=== PATIENT | female | born 1970 | race Two or more races ===

== ENCOUNTER 2016-04-12 08:31 | Day surgery (SDC) | payer MEDICAID ==
[2016-04-12] VITALS (20 sets, daily range): BP systolic 122–159; BP diastolic 43–70; PULSE 65–110; RESP 10–20; Ht 154.9 cm; Wt 58.0 kg
[~2016-04-12] VITALS: Ht 154.9 cm; Wt 58.0 kg
[~2016-04-12 08:31] MED LIST: CEFAZOLIN 2 GM/50 ML (PMX) 50 ML IVPB ONE; SOD CHLORIDE 0.9% 1,000 ML IV SCH
[2016-04-12 09:36] LABS: ADD SCAN DIFF NO
[2016-04-12 09:38] LABS: EOSINOPHILS % 0.6 % (0.0-7.0); HEMATOCRIT 35.3 % (37.0-47.0); LYMPHOCYTES # 1.2 10^3/ul (0.8-2.9); LYMPHOCYTES % 35.9 % (15.0-51.0); MEAN CORPUSCULAR HEMOGLOBIN 33.9 pg (29.0-33.0); MEAN CORPUSCULAR VOLUME 99.7 fl (82.0-101.0); MEAN PLATELET VOLUME 9.1 fl (7.4-10.4); MONOCYTE # 0.2 10^3/ul (0.3-0.9); MONOCYTES % 5.6 % (0.0-11.0); NEUTROPHILS % 57.9 % (39.0-77.0); PLATELET COUNT 187 10^3/UL (140-415); RED BLOOD COUNT 3.54 10^6/ul (4.20-5.40); RED CELL DISTRIBUTION WIDTH 12.9 % (11.5-14.5); WHITE BLOOD COUNT 3.4 10^3/ul (4.8-10.8)
[2016-04-12 09:51] LABS: POTASSIUM 3.8 mmol/L (3.5-5.1)
[2016-04-12 09:54] LABS: INR 1.05; PROTIME 13.7 Sec (12.2-14.2); PT RATIO 1.1
[2016-04-12 09:59] LABS: CALCIUM 9.5 mg/dl (8.4-10.2); CREATININE 0.57 mg/dl (0.44-1.00)
[2016-04-12] MEDS ORDERED: CEFAZOLIN 1 GM INJ ONE (10:15)
[2016-04-12] MEDS ORDERED: ONDANSETRON 4 MG INJ ONE (10:15)
[2016-04-12] MEDS ORDERED: MIDAZOLAM 1 MG/ML 2 ML INJ ONE (10:15)
[2016-04-12] MEDS ORDERED: PROPOFOL 20 ML ONE (10:15)
[2016-04-12] MEDS ORDERED: FENTAnyl 50 MCG/ML VIAL ONE (10:40)
[2016-04-12] MEDS ORDERED: METOCLOPRAMIDE 10 MG INJ ONE (10:55)
[2016-04-12] MEDS ORDERED: HYDROmorphONE (0.2 MG/ML) 10ML SYG IV PRN ×2 (11:00)
[2016-04-12] MEDS ORDERED: DIPHENHYDRAMINE 50 MG INJ IV PRN (11:00)
[2016-04-12] MEDS ORDERED: ONDANSETRON 4 MG INJ IV PRN ×3 (11:00→19:22)
[2016-04-12] MEDS ORDERED: OXYCODONE/ACETAMINOPHEN (5/325) TAB PO PRN ×2 (11:00)
[2016-04-12] MEDS ORDERED: MEPERIDINE 25 MG INJ IV PRN (11:00)
[2016-04-12] MEDS ORDERED: METOCLOPRAMIDE 10 MG INJ IV PRN (11:00)
[2016-04-12] MEDS ORDERED: EPHEDrine SULFATE 50 MG/5 ML SYG ONE (11:10)
--- NOTE | 2016-04-12 12:17 | OPR ---
DATE OF OPERATION: 04/12/2016 PREOPERATIVE DIAGNOSIS: Locally advanced right breast cancer. POSTOPERATIVE DIAGNOSIS: Locally advanced right breast cancer. OPERATION PERFORMED: Needle-directed right partial mastectomy and axillary dissection. ANESTHESIA: General. ANESTHESIOLOGIST: Dr. Joesph SURGEON: Desmond Cadena MD ASSISTANTS: Dr. Encarnacion and Dr. Peñaloza INDICATIONS FOR PROCEDURE: The patient is an unfortunate 45-year-old female who presented with a la rge, approximately 4 to 5 cm, invasive cancer of her right breast. She underwent neoadjuvant chemot herapy, with very good response. She thus was deemed a candidate for breast conservation. She cons ented for a needle-directed right partial mastectomy and axillary dissection. DESCRIPTION OF PROCEDURE: On the morning of surgery the patient presented to [facility], where she underwent localization of the previous clip performed by the attending radiologist, Dr. Jaimes . Subsequently, she was brought to the operating theater and placed u nder general anesthesia. The right breast and axillary region was prepped and draped in the usual s terile fashion. The localization wire was in the upper outer quadrant of the right breast. A curvi linear incision was made in this region. The subcutaneous tissue was dissected with cautery. The s kin edges were then elevated with skin hooks and wide circumferential dissection of the tissue assoc iated with the wire then took place. The specimen was elevated, transected, oriented, and sent for radiographic confirmation of capture. Capture was confirmed. The specimen was then [facility]. The wound was irrigated. Minimal bleeding was controlled with cautery and the skin was then reapproximated with a deep dermal layer of 4-0 Vicryl sutures in interrupted fash ion, followed by final skin approximation with 5-0 PDS sutures in subcuticular fashion. Attention was then directed to performing the axillary dissection. A 4-cm incision was made in the right axillary hairline. The subcutaneous tissue was dissected with cautery down through the clavip ectoral fascia. With blunt dissection along the chest wall the long thoracic nerve was identified a nd kept out of harm's way. More superiorly the axillary vein was identified and dissected from medi al to lateral. The thoracodorsal neurovascular bundle was identified, dissected throughout its cour se, and kept out of harm's way. Node bearing tissue between the long thoracic nerve and the thoraco dorsal nerve was meticulously harvested using the LigaSure device. The specimen was then sent for p ermanent pathologic analysis. The wound was irrigated. Minimal bleeding was controlled with cauter y. A #10 flat Samuel-Rodriguez drain was then brought through the right mid axillary line, cut to size , and laid within the axilla. It was secured in place with a 2-0 nylon suture in a standard fashion . The skin was then reapproximated with a 4-0 Vicryl suture in subcuticular fashion. Benzoin and S seth-Strips were applied to both incisions. The patient tolerated the procedure well. Estimated bl ood loss was 75 mL. There were no complications and the patient was transported in stable condition to the recovery room, where a circumferential compression dressing was applied. Dictated By: DESMOND FERREIRA/JIMY Conf#: [id number] DID#: [id number]
[2016-04-12] MEDS ORDERED: ACETAMINOPHEN 1000MG/100ML IV 100 ML IVPB PRN (12:30)
[2016-04-12] MEDS: HYDROmorphONE (0.2 MG/ML) 10ML SYG IV PRN ×3 (12:40→13:08)
[2016-04-12] MEDS: D5W-0.45 NACL + KCL 20 MEQ 1,000 ML IV SCH ×2 (13:55→23:43)
[2016-04-12] MEDS: morphine 2 MG INJ IV PRN ×2 (17:29→18:02)
--- NOTE | 2016-04-12 18:08 | HP ---
DATE OF ADMISSION: 04/12/2016 HISTORY OF PRESENT ILLNESS: The patient is a 45-year-old pleasant female with a history of invasive cancer of the right breast. The patient underwent neoadjuvant chemotherapy with good resp onse. The patient was seen by Dr. Cadena in general surgery consultation. The patient was brought t o the hospital and underwent a needle-directed right partial mastectomy and axillary dissection. Po stoperatively, the patient has experienced some significant pain and was admitted for further evalua tion and management. PAST MEDICAL HISTORY: The patient denies any past medical history. Denies any history of heart dis ease. Denies diabetes. PAST SURGICAL HISTORY: The patient is status post appendectomy, status post hernia repair, status p ost hysterectomy. FAMILY HISTORY: Negative for history of breast or ovarian cancer. SOCIAL HISTORY: The patient lives at home with her family. The patient denies any tobacco use, den ies any illicit drug use, denies alcohol use. ALLERGIES: NO KNOWN ALLERGIES. HOME MEDICATIONS: None. REVIEW OF SYSTEMS: A 12-point review of systems is negative unless mentioned in the HPI. In additi on, patient had mild nausea, however, denies any vomiting. PHYSICAL EXAMINATION: GENERAL: Well-developed, well-nourished female in no acute distress. VITAL SIGNS: Temperature is 98.1, pulse is 91, blood pressure is 130/67, respiratory rate 16, oxyge n saturation 97% on room air. HEENT: Head is atraumatic, normocephalic. Pupils equal, round, reactive to light and accommodation . Oral mucosa is pink and moist. NECK: Supple, no cervical lymphadenopathy, no thyromegaly. CHEST: Lungs clear bilaterally. Status post surgery, the patient has a right axillary SHORTY drain wit h serosanguineous fluid. CARDIOVASCULAR: Normal S1, S2. No murmurs, gallops, clicks, rubs noted. ABDOMEN: Round, soft, nondistended, nontender. Bowel sounds present. There is no guarding, no bonifacio ound tenderness. EXTREMITIES: No edema, clubbing, cyanosis. Pulses equal bilaterally 2+. SKIN: There is no rash, petechiae noted. NEUROLOGIC: The patient is awake, alert and oriented x4. No focal deficits noted. Motor strength 5/5 in all extremities. LABORATORY DATA: On admission, CBC: White blood cells 3.4, hemoglobin 12.0, hematocrit 35.3, plate lets 187. Chemistry: Sodium 147, potassium 3.8, chloride 106, carbon dioxide 28, anion gap 17, BUN is 8, creatinine 0.57, glucose 93, calcium 9.5, PT 13.7, INR is 1.05, APTT 39.0. ASSESSMENT AND PLAN: Locally advanced right cancer of the right breast, status post needle-directed right partial mastectomy and axillary dissection by Dr. Cadena. I will continue morphine and Tyleno l p.r.n. for pain, Zofran p.r.n. for nausea. Continue IV fluids. The patient received intraoperati ve antibiotics. Will obtain CBC and BMP tomorrow. Advance diet as patient tolerates. Continue inc entive spirometer while patient is awake. Sequential compression device for deep venous thrombosis prophylaxis. Further recommendations based on clinical course. Plan of care discussed with Dr. Jesica stacy. Dictated By: KINZA SMITH AUDIT CLERK for SUSHIL NUÑEZ MD SR/NTS Conf#: [id number] DID#: [id number]
[2016-04-13 00:34] VITALS: BP 125/71; PULSE 88; RESP 17
[2016-04-13] MEDS: D5W-0.45 NACL + KCL 20 MEQ 1,000 ML IV SCH ×2 (04:07→11:02)
[2016-04-13 05:08] LABS: ADD SCAN DIFF NO
[2016-04-13 05:11] LABS: BASOPHILS % 0.2 % (0.0-2.0); EOSINOPHILS # 0.1 10^3/ul (0.0-0.5); EOSINOPHILS % 1.7 % (0.0-7.0); HEMATOCRIT 30.7 % (37.0-47.0); HEMOGLOBIN 10.4 g/dl (12.0-16.0); LYMPHOCYTES # 1.3 10^3/ul (0.8-2.9); LYMPHOCYTES % 21.8 % (15.0-51.0); MEAN CORPUSCULAR HEMOGLOBIN 33.7 pg (29.0-33.0); MEAN CORPUSCULAR HGB CONC 33.9 g/dl (32.0-37.0); MEAN CORPUSCULAR VOLUME 99.4 fl (82.0-101.0); MEAN PLATELET VOLUME 9.2 fl (7.4-10.4); MONOCYTE # 0.5 10^3/ul (0.3-0.9); MONOCYTES % 8.3 % (0.0-11.0); NEUTROPHIL # 4.1 10^3/ul (1.6-7.5); NEUTROPHILS % 67.8 % (39.0-77.0); PLATELET COUNT 180 10^3/UL (140-415); RED BLOOD COUNT 3.09 10^6/ul (4.20-5.40); RED CELL DISTRIBUTION WIDTH 13.2 % (11.5-14.5)
[2016-04-13 05:16] LABS: POTASSIUM 4.1 mmol/L (3.5-5.1)
[2016-04-13 05:19] LABS: CREATININE 0.6 mg/dl (0.44-1.00)
[2016-04-13 05:20] LABS: CALCIUM 9.1 mg/dl (8.4-10.2)
[2016-04-13 07:17] VITALS: BP 118/64; RESP 14
[2016-04-13] MEDS ORDERED: HYDROCODONE/APAP (5/325) TAB PO PRN (09:00)
[2016-04-13 13:00] VITALS: BP 122/71; PULSE 85; RESP 17
--- NOTE | 2016-04-13 13:36 | PN ---
DATE: 04/13/2016 Postop day #1. SUBJECTIVE: No complaint. OBJECTIVE: Vital signs are stable, no fevers. Samuel-Rodriguez drain has drained 75 mL in 24 hours. I t is serosanguineous. The dressing is intact, wrapped around the chest. It is not tight. The duglas ent does not complain. ASSESSMENT: Postop day #1 partial mastectomy, right with axillary dissection. The patient is stabl e, no fever. Hemoglobin and hematocrit are stable. Samuel-Rodriguez draining serosanguineous fluid. PLAN: 1. The patient can be discharged home today. 2. The nurses will teach the patient how to handle the Samuel-Rodriguez drain and how to drain, how to measure it and record it every night. 3. The patient is to call Dr. Cadena' office on Friday and make an appointment for followup and go a nd see Dr. Cadena. On Friday postop day #4, patient can remove the elastic bandage around th e chest wall, but leave the sponges over the wound in place. The patient stated her understanding o f instructions. The patient will be discharged PCP will see the patient. Dictated By: ELIZABETH CONWAY/JIMY Conf#: [id number] DID#: [id number]
--- NOTE | 2016-04-13 15:34 | PDOCDIS ---
Discharge Instructions CONDITION Patient Condition: Stable HOME CARE INSTRUCTIONS: Diet Instructions: Regular ACTIVITY: Activity Restrictions: Slowly Increase Activity Rest between Activity Avoid heavy lifting Bathing Restrictions: Sponge BathActivity Restrictions Comment: No showers until cleared by Dr. Cadena FOLLOW UP/APPOINTMENTS Appointments FU WITH Primary MD X WEEK FU with specialist as recommended Patient verbalized understading discharge instructions. Call 911 or got to the nearest hospital if symptoms worsen Dw Dr Delgado/staff/patient. MEME HUSTON Apr 13, 2016 15:34
[2016-04-13] MEDS ORDERED: HYDR-3498 PO (15:36)
[2016-04-13] MEDS ORDERED: DOCU-144 PO (15:36)
== END 2016-04-13 16:29 | disposition home or self-care (01) ==
LOC: SDS 08:31 → MS1 13:30 → SDS 04-13 16:29
PROVIDERS: ATTEND Surgery Surgical Oncology
DX: D05.11 Intraductal carcinoma in situ of right breast (principal); C77.3 Secondary and unspecified malignant neoplasm of axilla and upper limb lymph nodes
CPT/HCPCS: 19301; 38500; 80048; 85025; 85610; 85730; 88307; J0690; J1170; J2250; J2270; J2405; J2765; J3010; J3480; Z7512; Z7610